=== PATIENT | male | born 1965 | race Caucasian/White ===

== ENCOUNTER 2021-07-19 20:47 | Emergency (ER) | payer OTHER ==
[2021-07-20] MEDS ORDERED: HYDROCODONE-AC1 EACH PO (00:52)
== END 2021-07-20 01:00 | disposition home or self-care (01) ==
LOC: ER1 20:47
DX: S22.31XA Fracture of one rib, right side, initial encounter for closed fracture (principal); S42.031A Displaced fracture of lateral end of right clavicle, initial encounter for closed fracture; W22.8XXA Striking against or struck by other objects, initial encounter; F17.210 Nicotine dependence, cigarettes, uncomplicated
CPT/HCPCS: 71111; 72110; 73000; 73030; 99283